=== PATIENT | female | born 1940 | race Caucasian/White ===

== ENCOUNTER 2024-05-23 16:51 | Inpatient (IN) | payer OTHER ==
[~2024-05-23] VITALS: Ht 162.6 cm; Wt 44.5 kg
[2024-05-23 16:52] VITALS: BP_SYST 134; PULSE 86; RESP 18; TEMP 98.2; O2SAT 98
[2024-05-23 18:04] LABS: BASOPHILS % (AUTO) 0.7 % (0.0-2.0); EOSINOPHILS # (AUTO) 0.1 K/uL (0.0-0.4); EOSINOPHILS % (AUTO) 1.5 % (0.0-4.0); HEMATOCRIT 34.5 % (36-48); HEMOGLOBIN 12.2 g/dL (12.0-16.0); LYMPHOCYTES # (AUTO) 0.6 K/uL (1.0-5.5); LYMPHOCYTES % (AUTO) 15.3 % (20.5-51.5); MEAN CORPUSCULAR HEMOGLOBIN 31 pg (27-31); MEAN CORPUSCULAR HGB CONC 36 % (32-36); MEAN CORPUSCULAR VOLUME 87 fL (79.0-98.0); MONOCYTES # (AUTO) 0.4 K/uL (0.0-1.0); MONOCYTES % (AUTO) 9.8 % (1.7-9.3); NEUTROPHILS % (AUTO) 72.7 % (40.0-70.0); PLATELET COUNT (AUTO) 153 K/uL (130-430); RED BLOOD CELL COUNT(AUTO) 3.97 MIL/uL (4.2-6.2); RED CELL DISTRIBUTION WIDTH 18.1 % (9.0-15.0); WHITE BLOOD COUNT (AUTO) 4.1 K/uL (4.8-10.8)
[2024-05-23 18:23] LABS: INR 1.1 (0.8-1.2); PROTHROMBIN TIME 11.2 SECS (9.5-12.5)
[2024-05-23 18:32] LABS: ALANINE AMINOTRANSFERASE 11 U/L (12-78); ANION GAP 12 (5-15); ASPARTATE AMINOTRANSFERASE 17 U/L (10-37); BILIRUBIN,DIRECT 1.2 mg/dL (0.0-0.3); CALCIUM 9.8 mg/dL (8.4-11.0); CARBON DIOXIDE 23 mmol/L (23-29); CHLORIDE 91 mmol/L (98-107); CREATINE KINASE, TOTAL 50 U/L (26-192); CREATININE 0.68 mg/dL (0.55-1.30); GLUCOSE 113 mg/dL (74-106); SODIUM SERUM 126 mmol/L (136-145); TOTAL BILIRUBIN 2.8 mg/dL (0.0-1.0); TOTAL PROTEIN, SERUM 6.8 g/dL (6.4-8.3); UREA NITROGEN, BLOOD 12 mg/dL (8-21)
[2024-05-23] MEDS: ASPIRIN 81 MG TABLET(ECOTRIN) PO ONE (19:39)
[2024-05-23] MEDS ORDERED: LISI-209 PO (21:24)
[2024-05-23] MEDS ORDERED: SYN75 PO (21:24)
[2024-05-23] MEDS: TEMAZEPAM 7.5 MG CAPSULE PO PRN (23:26)
[2024-05-23] MEDS: LORazepam 1 MG TABLET PO ONE (23:26)
[2024-05-24] VITALS: BP_SYST 143; PULSE 79; RESP 18; TEMP 98.4; O2SAT 95
[2024-05-24 01:02] VITALS: BP_SYST 143; PULSE 75; RESP 18; TEMP 98.5; O2SAT 96
[2024-05-24] MEDS: LEVOTHYROXINE SODIUM 0.075 MG TABLET PO SCH (06:08)
[2024-05-24 08:20] VITALS: O2SAT 98
[2024-05-24] MEDS: lisinopriL 5 MG TABLET PO SCH (09:00)
[2024-05-24] MEDS: ASPIRIN 81 MG TAB.CHEW PO ONE (09:51)
[2024-05-24 12:20] VITALS: BP_SYST 90; PULSE 66; RESP 16; TEMP 98; O2SAT 100
[2024-05-24 13:16] LABS: ALBUMIN 3.7 g/dL (3.4-4.8); BILIRUBIN,DIRECT 0.8 mg/dL (0.0-0.3); THYROID STIMULATING HORMONE 1.73 uIu/mL (0.34-4.82); TOTAL BILIRUBIN 2.2 mg/dL (0.0-1.0); TOTAL PROTEIN, SERUM 6.7 g/dL (6.4-8.3)
[2024-05-24] MEDS: FUROSEMIDE 20 MG TABLET PO ONE (13:40)
[2024-05-24 16:08] VITALS: BP_SYST 118; PULSE 57; RESP 16; TEMP 97.7; O2SAT 100
[2024-05-24 20:00] VITALS: BP_SYST 96; PULSE 63; RESP 16; TEMP 96.9; O2SAT 100
[2024-05-24] MEDS: FUROSEMIDE 20 MG TABLET PO SCH (21:04)
[2024-05-25 00:42] VITALS: BP_SYST 97; PULSE 56; RESP 15; TEMP 96.7; O2SAT 99
[2024-05-25 04:00] VITALS: RESP 16
[2024-05-25 05:19] LABS: BASOPHILS % (AUTO) 0.5 % (0.0-2.0); EOSINOPHILS # (AUTO) 0.2 K/uL (0.0-0.4); EOSINOPHILS % (AUTO) 4.3 % (0.0-4.0); HEMATOCRIT 34.3 % (36-48); HEMOGLOBIN 12.3 g/dL (12.0-16.0); LYMPHOCYTES # (AUTO) 1.2 K/uL (1.0-5.5); LYMPHOCYTES % (AUTO) 22.5 % (20.5-51.5); MEAN CORPUSCULAR HEMOGLOBIN 31 pg (27-31); MEAN CORPUSCULAR HGB CONC 36 % (32-36); MEAN CORPUSCULAR VOLUME 86 fL (79.0-98.0); MONOCYTES # (AUTO) 1.3 K/uL (0.0-1.0); MONOCYTES % (AUTO) 23.8 % (1.7-9.3); NEUTROPHILS # (AUTO) 2.7 K/uL (1.8-7.7); NEUTROPHILS % (AUTO) 48.9 % (40.0-70.0); PLATELET COUNT (AUTO) 145 K/uL (130-430); RED BLOOD CELL COUNT(AUTO) 3.98 MIL/uL (4.2-6.2); WHITE BLOOD COUNT (AUTO) 5.6 K/uL (4.8-10.8)
[2024-05-25 05:24] LABS: ANION GAP 8 (5-15); CARBON DIOXIDE 27 mmol/L (23-29); CHLORIDE 97 mmol/L (98-107); CREATININE 0.84 mg/dL (0.55-1.30); GLUCOSE 84 mg/dL (74-106); SODIUM SERUM 132 mmol/L (136-145)
[2024-05-25 06:30] LABS: UREA NITROGEN, BLOOD 13 mg/dL (8-21)
[2024-05-25 11:54] VITALS: BP_SYST 87; PULSE 60; RESP 20; TEMP 97.9; O2SAT 99
[2024-05-25 15:30] VITALS: BP_SYST 92; PULSE 56; RESP 20; TEMP 98.3; O2SAT 98
[2024-05-25 20:14] VITALS: O2SAT 94
[2024-05-25 22:59] VITALS: BP_SYST 102; PULSE 59; RESP 16; TEMP 98.3; O2SAT 95
[2024-05-26] VITALS: BP_SYST 113; PULSE 59; RESP 16; TEMP 98.3; O2SAT 98
[2024-05-26] MEDS: ACETAMINOPHEN 325 MG TABLET PO PRN (02:32)
[2024-05-26 08:47] VITALS: BP_SYST 111; PULSE 67; RESP 20; TEMP 97.4; O2SAT 98
[2024-05-26 09:30] VITALS: O2SAT 98
[2024-05-26 12:29] VITALS: BP_SYST 99; PULSE 64; RESP 18; TEMP 98.3; O2SAT 97
[2024-05-26 16:12] VITALS: BP_SYST 106; PULSE 69; RESP 18; TEMP 97.6; O2SAT 95
[2024-05-26 17:23] VITALS: BP_SYST 116; PULSE 72; RESP 18; TEMP 97.6; O2SAT 98
== END 2024-05-26 18:40 | disposition home or self-care (01) | DRG 442 ==
LOC: SED 16:51 → SMU 19:01
PROVIDERS: ADMIT Specialist; ATTEND Specialist
DX: E80.4 Gilbert syndrome (principal); E87.1 Hypo-osmolality and hyponatremia; G45.9 Transient cerebral ischemic attack, unspecified; I10 Essential (primary) hypertension; N28.89 Other specified disorders of kidney and ureter; E80.6 Other disorders of bilirubin metabolism; I73.9 Peripheral vascular disease, unspecified; Z79.899 Other long term (current) drug therapy
CPT/HCPCS: 36415; 70450-TC; 70551; 71045; 80048; 80076; 82550; 83010; 83615; 84443; 84484; 85025; 85044; 85610; 85730; 93005; 97116-GP; 97530-GP; 99285; Q9967